=== PATIENT | male | born 1985 | race African-American/Black ===

== ENCOUNTER 2017-04-05 07:31 | Emergency (ER) | payer BC, OTHER ==
[2017-04-05] MEDS ORDERED: Dexamethasone 4 MG TAB ONE (09:05)
[2017-04-05] MEDS ORDERED: Acetaminophen 325 MG TAB ONE (09:05)
== END 2017-04-05 10:13 | disposition home or self-care (01) ==
LOC: ERS 07:31
DX: J02.9 Acute pharyngitis, unspecified (principal)
CPT/HCPCS: 87081; 87430; 96360; J8540